=== PATIENT | male | born 1940 ===

== ENCOUNTER → 2017-11-15 | Outpatient (CLI) | payer MEDICARE, OTHER ==
[2017-11-15 20:08] LABS: Protein, Urine Quantitative 13.3 mg/dL (0.0-11.9)
[2017-11-15 20:10] LABS: Microalbumin, Urine Quant. 13.5 mg/L (0.000-20.000)
== END | disposition home or self-care (01) ==
LOC: LAB SHORT 05:30 → LAB 05:30 → EDSTATUS 11-13 11:35 → LAB FUT 11-13 11:35
PROVIDERS: Internal Medicine Nephrology
DX: N18.3 Chronic kidney disease, stage 3 (moderate) (principal); D63.1 Anemia in chronic kidney disease; N25.81 Secondary hyperparathyroidism of renal origin; E55.9 Vitamin D deficiency, unspecified; E78.00 Pure hypercholesterolemia, unspecified; R76.9 Abnormal immunological finding in serum, unspecified; R94.5 Abnormal results of liver function studies; R94.6 Abnormal results of thyroid function studies
CPT/HCPCS: 82043; 84156